=== PATIENT | female | born 1965 | race African-American/Black ===

== ENCOUNTER → 2020-06-09 | Outpatient (CLI) | payer MEDICARE, MEDICAID ==
[2014-11-18 15:00] VITALS: BP 107/67
[~2020-06-09] MED LIST: POTA20TA12 PO
--- NOTE | 2020-06-09 15:40 | KCIC ---
Bilateral digital screening mammograms: Reason for examination: Routine baseline screening. Interpretation was made with the benefit of CAD. The skin and nipples show no abnormalities. No abnormal axillary lymph nodes are seen. The breast par enchyma shows scattered fibroglandular density. 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 In the right breast however, there is a cluster of calcifications at the 10:00 C position and fur ther evaluation with coned compression magnification views is recommended. There are also small circu mscribed nodules present at the 10:00 B and 4:00 B positions of the right breast measuring approximat chasidy 6 mm in size each. Further evaluation with ultrasound is recommended. There are no other dominant masses, suspicious calcifications or architectural distortions. Some benign calcifications are prese nt. Impression: Clustered calcifications at the 10:00 C position of the right breast. Recommend further evaluation wi th coned compression magnification views. Small 6 mm circumscribed nodules at the 4:00 B and 10:00 B positions of the right breast. Recommend f urther evaluation with ultrasound. BI-RADS Category 0: Incomplete. Needs additional imaging evaluation. "Our facility is accredited by the [employer] Mammography [employer]." This patient's information has been entered into a reminder system for the patient to be notified wit h the results of her examination and a target date for the next mammogram. Electronically signed by: Myriam Camacho MD (06/09/2020 3:38 PM) [email or web address]
== END ==
LOC: KCIC MAMMO 14:09
PROVIDERS: ATTEND Obstetrics & Gynecology
DX: Z12.31 Encounter for screening mammogram for malignant neoplasm of breast (principal)
CPT/HCPCS: 77067

== ENCOUNTER → 2020-07-15 | Outpatient (CLI) | payer OTHER, MEDICAID ==
[2014-11-18 15:00] VITALS: BP 107/67
--- NOTE | 2020-07-16 11:08 | KCIC ---
Right breast diagnostic digital mammograms: Reason for examination: Calcifications on screening mammogram. Comparison is made to mammographic exam dated 06/09/2020. Cone compression magnification views were obtained of the right breast with attention to the upper ou ter quadrant. There is a cluster of pleomorphic calcifications at the 10:00 C position. DCIS cannot be excluded and further evaluation with stereotactic biopsy is recommended. Due to the close proximity of these calc ification to the chest wall however, an upright stereotactic biopsy would be necessary. IMPRESSION: Clustered pleomorphic calcifications at the 10:00 C position of the right breast. DCIS cannot be excl uded. Due to the posterior position of these calcifications in relationship to the chest wall, furthe r evaluation with stereotactic biopsy performed on an upright unit is recommended. BI-RADS Category 0: Incomplete. Needs additional imaging evaluation. Right breast ultrasound: Ultrasound examination of the right breast and axilla was performed. At the 8:00 position 8 cm from the nipple, there is a small 5 mm hypoechoic lesion with echogenic matthew ter consistent with an intramammary lymph node. No other cystic or solid nodules are seen. No abnorma l appearing lymph nodes are seen in the axilla. IMPRESSION: Small intramammary lymph node at the 8:00 position. No suspicious abnormality seen sonographically in in the breast. Recommend stereotactic biopsy of the calcification seen in the right breast posterior ly at the 10:00 C position. BI-RADS Category 4: Suspicious. These findings have been discussed with the patient and the patient's physician, Dr. Mccoy was juan carlos led about these findings by myself on 07/15/2020 at 3:30 PM with message left on the answering machine and again message was left on answering machine on 07/16/2020 at 11:05 AM. This patient's information has been entered into a reminder system for the patient to be notified wit h the results of her examination and a target date for the next mammogram. Electronically signed by: Myriam Camacho MD (07/16/2020 11:06 AM) [email or web address]
== END ==
LOC: KCIC MAMMO 12:52
PROVIDERS: ATTEND Obstetrics & Gynecology
DX: R92.1 Mammographic calcification found on diagnostic imaging of breast (principal)
CPT/HCPCS: 76641; 77065